=== PATIENT | male | born 1985 | race Caucasian/White ===

== ENCOUNTER 2016-11-04 22:54 | Emergency (ER) | payer BC, OTHER ==
[~2016-11-04] VITALS: Ht 172.7 cm; Wt 115.9 kg
[~2016-11-04 22:54] MED LIST: [UNRECOGNIZED DRUG - CODE] PO
[2016-11-04 22:58] VITALS: TEMP 36.8; Ht 172.7 cm; Wt 115.9 kg
[2016-11-04] MEDS ORDERED: MoRPHine SULFATE 4 MG/ML 1 ML CARP\\VIAL ONE (23:05)
[2016-11-04] MEDS ORDERED: MoRPHine SULFATE 2 MG/ML CARP ONE (23:05)
[2016-11-04] MEDS ORDERED: SODIUM CHLORIDE 0.9% 1000ML 500 ML IV ONE (23:06)
[2016-11-04] MEDS ORDERED: ONDANSETRON INJ 2 MG/ML 2 ML VIAL ONE (23:06)
[2016-11-04] MEDS ORDERED: ONDANSETRON INJ 2 MG/ML 2 ML VIAL IV STA (23:06)
[2016-11-04] MEDS ORDERED: KETOROLAC TROMETHAMINE 30 MG/ML VIAL IV STA (23:12)
[2016-11-04] MEDS ORDERED: MoRPHine SULFATE 10 MG/ML CARP/VIAL IV PRN (23:15)
[2016-11-04] MEDS ORDERED: DEXT10CA PO (23:20)
--- NOTE | 2016-11-04 23:22 | EMERGENCY ROOM VISIT NOTE ---
History Report prepared by Oksana: Esteban Mcleod Under the Supervision of: Dr. Yaz Reis D.O. First contact with patient: 23:08 Chief Complaint: KIDNEY STONE Stated Complaint: KIDNEY STONES ON RT SIDE History of Present Illness The patient is a 31 year old male who presents to the Emergency Room with complaints of persistent right flank pain that started at approximately 1920 tonight. His discomfort is currently rated 8/10 in severity. The patient notes one episode of hematuria tonight as well. He also complains of some nausea but denies any vomiting. The patient's pain does not radiate to the groin or abdomen. He denies any history of kidney stones but believes that he has one now. The patient denies any major health problems. He was given 6 mg Morphine and 4 mg Zofran upon arrival to the ED per nursing protocol. Source of History: patient Onset: 1920 tonight Position: back (right flank) Symptom Intensity: 8/10 Quality: other (possible kidney stone) Timing: other (persistent) Associated Symptoms: + nausea, + urinary symptoms, No abdominal pain, No vomiting Review of Systems See HPI for pertinent positives & negatives. A total of 10 systems reviewed and were otherwise negative. Past Medical & Surgical Medical Problems: (1) Narcolepsy (2) No history of kidney disease (3) No known health problems Surgical Problems: (1) H/O adenoidectomy (2) Hx of tonsillectomy Family History Cancer Diabetes mellitus Gallbladder disease Heart disease Hypertension Social History Smoking Status: Never Smoker Alcohol Use: none Marital Status: single Occupation Status: employed Current/Historical Medications Scheduled Dextroamphetamine Sulfate (Dexedrine), 20 MG PO DAILY Allergies Coded Allergies: Codeine (Unverified Allergy, Unknown, unknown, 11/04/16) Penicillins (Unverified Allergy, Unknown, unknown, 11/04/16) Sulfa Drugs (Unverified Allergy, Unknown, unknown, 11/04/16) Physical Exam Vital Signs Date Time Temp Pulse Resp B/P Pulse Ox O2 Delivery O2 Flow Rate FiO2 11/05/16 01:35 74 18 139/73 98 Room Air 11/04/16 23:43 67 20 130/66 94 Room Air 11/04/16 22:58 36.8 85 20 159/114 96 Room Air Physical Exam General: Patient appears uncomfortable. HEENT: Head - normocephalic and atraumatic Pupils are equal, round, and reactive to light. Extraocular eye muscles are intact, and sclera are anicteric. Nose - moist nasal mucosa without discharge. Mouth - moist buccal mucosa. Oropharynx is nonerythematous and there is no tonsillar exudate or edema noted. Neck: Supple; no JVD, nuchal rigidity, cervical lymphadenopathy. Heart: Regular rate and rhythm. There is a normal S1 and S2 with no murmurs, clicks, or gallops appreciated. Lungs: Clear to auscultation bilaterally with no wheezes, rales, or rhonchi. Abdomen: Soft, completely nontender, nondistended, with good bowel sounds. There are no palpable pulsatile masses or hepatosplenomegaly. There is no guarding, rigidity, or rebound noted. Extremities: No evidence of cyanosis, clubbing, or edema. There are easily palpable peripheral pulses. Skin: Skin is diaphoretic and pale. Medical Decision & Procedures ER Provider Diagnostic Interpretation: CT results as stated below per my review and radiologist interpretation: CT ABDOMEN & PELVIS: 4 mm distal right ureteral calculus causing mild hydroureteronephrosis. Normal appendix. Fat containing left inguinal hernia. Hepatic steatosis. Radiologist Warren Dominguez MD. Laboratory Results 11/04/16 23:10 11/04/16 23:10 Test 11/04/16 23:00 11/04/16 23:10 Urine Color DK YELLOW Urine Appearance CLEAR (CLEAR) Urine pH 5.0 (4.5-7.5) Urine Specific [place] 1.041 (1.000-1.030) Urine Protein TRACE (NEG) Urine Glucose (UA) NEG (NEG) Urine Ketones TRACE (NEG) Urine Occult Blood 3+ (NEG) Urine Nitrite NEG (NEG) Urine Bilirubin NEG (NEG) Urine Urobilinogen NEG (NEG) Urine Leukocyte Esterase NEG (NEG) Urine WBC (Auto) 1-5 /hpf (0-5) Urine RBC (Auto) 10-30 /hpf (0-4) Urine Hyaline Casts (Auto) 5-10 /lpf (0-5) Urine Epithelial Cells (Auto) 5-10 /lpf (0-5) Urine Bacteria (Auto) NEG (NEG) Red Blood Count 5.57 M/uL (4.7-6.1) Mean Corpuscular Volume 83.8 fL (80-100) Mean Corpuscular Hemoglobin 29.6 pg (25-34) Mean Corpuscular Hemoglobin Concent 35.3 g/dl (32-36) RDW Standard Deviation 41.1 fL (36.4-46.3) RDW Coefficient of Variation 13.4 % (11.5-14.5) Mean Platelet Volume 9.7 fL (7.4-10.4) Anion Gap 7.0 mmol/L (3-11) Est Creatinine Clear Calc Drug Dose 108.2 ml/min Estimated GFR () 91.5 Estimated GFR (Non- 79.0 BUN/Creatinine Ratio 14.6 (10-20) Calcium Level 9.0 mg/dl (8.5-10.1) Laboratory results per my review. Medications Administered Medications (Trade) Dose Ordered Sig/Tran Route Start Time Stop Time Status Last Admin Dose Admin Morphine Sulfate (MoRPHine SULFATE INJ) 4 mg STK-MED ONCE .ROUTE 11/04/16 23:05 11/04/16 23:08 DC 11/04/16 23:13 4 MG Morphine Sulfate (MoRPHine SULFATE INJ) 2 mg STK-MED ONCE .ROUTE 11/04/16 23:05 11/04/16 23:08 DC 11/04/16 23:13 2 MG Ondansetron HCl 4 mg 4 mg STK-MED ONCE .ROUTE 11/04/16 23:06 11/04/16 23:09 DC 11/04/16 23:14 4 MG Sodium Chloride (Nss 1000ml) 500 ml @ 999 mls/hr Q31M ONCE IV 11/04/16 23:06 11/04/16 23:36 DC 11/04/16 23:15 999 MLS/HR Ketorolac Tromethamine (Toradol Inj) 30 mg NOW STAT IV 11/04/16 23:12 11/04/16 23:14 DC 11/04/16 23:18 30 MG Procedure Medications administered include Toradol IV, Zofran IV, Morphine Sulfate IV, Dilaudid IV. ED Course 2308: Past medical records reviewed. The patient was evaluated in room B7. A complete history and physical exam was performed. IV lock was established. 2312: Toradol 30 mg IV. 2326: Dilaudid 1 mg IV. 0013: The patient is much more comfortable and is drinking anthony taz. 0049: The patient is still very comfortable. He is still receiving IV fluids. I discussed the treatment plan with him. He verbalized understanding and agreement of the treatment plan. The patient is ready for discharge. Medical Decision The patient is a 31 year old male who presents to the ED with right flank pain. Differential diagnosis includes ureteral colic, pyelonephritis, colitis, lower back strain. Laboratory interpretation: Normal renal function, glucose 106, white count 14.4 , stable H&H. Urine labs were positive for 3+ blood and trace ketones, 10-30 red blood cells. This is a 31-year-old male patient presents to the emergency department with right flank pain. He had significant hematuria. CT scan showed evidence of a right distal 4 mm ureteral stone. The patient's pain never returned while here in the emergency department. It seems that he most likely passed the stone into the bladder. The patient received IV fluids and was able to drink clear liquids without difficulty. I've asked him to follow-up his PCP for referral to urology Impression Primary Impression: Right ureteral calculus Scribe Attestation The scribe's documentation has been prepared under my direction and personally reviewed by me in its entirety. I confirm that the note above accurately reflects all work, treatment, procedures, and medical decision making performed by me. Departure Information Dispostion Home / Self-Care Referrals Beto Turner M.D. (MEDICAL) (PCP) Forms HOME CARE DOCUMENTATION FORM, IMPORTANT VISIT INFORMATION Patient Instructions Kidney Stones, My [employer] Additional Instructions Rest. Take a bland diet and plenty of clear liquids you can use motrin for pain. Return to the ER if symptoms worsen. Follow up with your PCP
[2016-11-04] MEDS ORDERED: HYDROmorphone INJ 1 MG/ML SYR IV STA (23:26)
[2016-11-04 23:44] LABS: HEMATOCRIT 46.7 % (42-52); MEAN CELL VOLUME 83.8 fL (80-100); MEAN CORPUSCULAR HEMOGLOBIN 29.6 pg (25-34); MEAN CORPUSCULAR HGB CONC 35.3 g/dl (32-36); MEAN PLATELET VOLUME 9.7 fL (7.4-10.4); PLATELET COUNT 309 K/uL (130-400); RED BLOOD COUNT 5.57 M/uL (4.7-6.1)
[2016-11-04 23:55] LABS: URINE APPEARANCE CLEAR (CLEAR); URINE BILIRUBIN NEG (NEG); URINE COLOR DK YELLOW; URINE NITRITE NEG (NEG); URINE SPECIFIC GRAVITY 1.041 (1.000-1.030); UROBILINOGEN NEG (NEG); ZZUR CULT IF INDIC CLEAN CATCH NO
[2016-11-04 23:59] LABS: BUN/CREATININE RATIO 14.6 (10-20); CREATININE 1.2 mg/dl (0.60-1.40); POTASSIUM 3.8 mmol/L (3.5-5.1)
[2016-11-05 00:07] LABS: MANUAL MICROSCOPIC REQUIRED? NO; REVIEW REQ? NO
[2016-11-05 01:35] VITALS: BP 139/73; PULSE 74; O2SAT 98
--- NOTE | 2016-11-05 07:36 | DIAGNOSTIC IMAGING REPORT ---
CT SCAN OF THE ABDOMEN AND PELVIS WITHOUT IV CONTRAST CLINICAL HISTORY: Right flank pain. COMPARISON STUDY: No priors. TECHNIQUE: CT scan of the abdomen and pelvis is performed from the lung bases to the proximal femora. Images are reviewed in the axial, sagittal, and coronal planes. IV contrast was not administered for this examination as per the referring clinician. Automated dose control exposure was utilized. CT DOSE: 1779.22 mGy.cm FINDINGS: Lung bases: The heart is normal in size and without pericardial effusion. The lung bases are clear. There is a small hiatal hernia. The distal esophagus is filled with fluid. Liver: The unenhanced liver is normal in enlarged, measuring 19 cm in length. The liver demonstrates diffusely diminished attenuation consistent with hepatic steatosis. Fatty sparing is noted adjacent to the gallbladder fossa. There is no intrahepatic biliary ductal dilatation. Gallbladder: Unremarkable. Spleen: Normal in size and attenuation. Pancreas: Unremarkable. Adrenal glands: Unremarkable. Kidneys: The unenhanced kidneys are normal in size. There is a 4 mm obstructing calculus in the distal right ureter seen on axial image #392. This is located approximately 2.5 cm above the vesicoureteral junction and causes mild right hydroureteronephrosis. An additional 2 mm nonobstructing calculus is seen in the right kidney. There are no left-sided renal calculi identified and no left-sided hydronephrosis. There is no evidence of contour deforming renal mass lesion. Abdominal vasculature: The abdominal aorta is normal in course and caliber. Bowel: The small bowel and colon are normal in course and caliber. The appendix is well-visualized and normal. Peritoneum: There is no intraperitoneal free air or abdominal ascites. There is a small fat-containing umbilical hernia. Lymphadenopathy: None. Pelvic viscera: The bladder is decompressed and grossly unremarkable. The prostate and seminal vesicles are normal as visualized. There is a small fat-containing left inguinal hernia. Skeletal structures: No lytic or blastic lesions are seen. Hyperlordosis is noted in the lumbar spine. There is mild but age advanced lumbosacral spondylosis. IMPRESSION: 1. There is a 4 mm obstructing calculus in the distal right ureter. This causes mild right hydroureteronephrosis. 2. There is an additional 2 mm nonobstructing right renal calculus. 3. Hepatomegaly and hepatic steatosis. 4. Additional findings as above. Electronically signed by: Ethan Rosenthal M.D. 11/05/2016 7:35 AM Dictated Date/Time: 11/05/2016 7:30 AM
== END 2016-11-05 01:41 | disposition home or self-care (01) ==
LOC: C.EDB 22:54
DX: N20.1 Calculus of ureter (principal); G47.419 Narcolepsy without cataplexy